=== PATIENT | female | born 1970 | race Caucasian/White ===

== ENCOUNTER 2024-08-12 12:59 | Outpatient (CLI) | payer OTHER, SELFPAY ==
--- OUTSIDE RECORDS SUMMARY | 2024-08-12 13:11 | XMS_ITS | Data Portability ---
Author Organization [facility], [address] ([place]) Address [address] [place] [address] Care Team Providers Care Magnetizer Name Role Phone NOHEMI STEELE Primary Care Provider Assessment Encounter Date Assessment Date Assessment LastModified by Organization Details LastModified Time 06/01/2024 06/01/2024 1. A 53-year-old female in for annual physical. 2. Surgical, social, and family history were reviewed today. 3. Immunizations reviewed and discussed. She is going to check on the cost of Shingrix. She has already had a flu vaccine. She is going to hold off on a COVID booster at this time. Tdap is up to date from 2019. 4. Personal history of colon cancer. Diagnosed at age 32. Underwent colectomy in 2008. Last colonoscopy in 2019, and due for repeat in 2024. 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 Negative high-risk HPV and intraepithelial lesion or malignancy. Due for repeat December 2024. Mammogram up to date from May 2024. 6. Hypertension: Blood pressure is elevated today. Add amlodipine 2.5 mg one tablet daily. On HCTZ 25 mg and lisinopril 40 mg. She has had a side effect of lower extremity edema with amlodipine in the past, but I am hopeful that this will not occur, given she is on a diuretic and SABINE inhibitor at this time. 7. Depression with anxiety: Stable on fluoxetine and bupropion. 8. Family history of melanoma: Recommend annual skin check with a varitype operator. 9. BMP, lipid profile, and TSH ordered today. TSH has been ordered, as she was reporting night sweats at her last office visit, which have remained unchanged. 10 The patient is going to notify me in two weeks with blood pressure readings. She will send these via the portal, as she is currently living in [place]. We will provide recommendations over the phone. 11. Patient does plan to establish with a provider in the [place] area. She voiced understanding of treatment plan and had no further questions or concerns. renny peters Not available 06/01/2024 17:04:49 Plan of Treatment Reminders Order Date Submit Date Provider Last Modified By Organization Details Last Modified Time Details Appointments None recorded. Lab lipid panel, serum 2023 [facility], [facility] [address], [place], [address], 04:30:42 BMP, serum or plasma 2023 [facility], [facility] [address], [place], [address], 04:17:01 TSH, serum or plasma 2023 [facility], [facility], [place], [address], 04:30:42 Referral None recorded. Procedures None recorded. Surgeries None recorded. Imaging None recorded. Medication Orders amlodipine 2.5 mg tablet 2023 [facility] [address] [place], [address], 15:51:25 Patient TargetsNo targets recorded. Patient InstructionsNo instructions recorded. Reason for Referral None Reported. Problems Name Problem SNOMED Code Status Onset Date Resolution Date Notes Provider Name and Address Organization Details Recorded Time Depressi ve disorder 93231945 Active 2023 Lelo Walker [facility] 4 16:42:07 Hyperten sive disorder 03182324 Active 2023 Lelo Walker [facility] 4 16:45:03 Mixed hyperlip idemia 145925901 Active 2023 Pooja Cho PA-C [address] [facility], [place], [address], [facility] 4 15:44:29 [facility]ae [facility] 41503628 Active 2023 Pooja Cho PA-C [address] [facility], [place], [address], [facility] 4 15:44:38 Malignan t tumor of colon 663620496 Completed 202306/01/2024 Removal Reason: diagnosed at age 32. Underwent colectomy in 2008. Pooja Cho PA-C [address] [facility], [place], [address], [facility] 4 16:00:00 Problem Notes None recorded. Procedures Surgical History Date Name Laterality Status Provider Name and Address Organization Details Recorded Time 05/12/20 24 Date of Last Mammogram completed Not Available Health Note 06/01/2024 12:09:42 01/14/20 22 Date of Last Pap Smear completed Not Available Health Note 06/01/2024 12:09:42 Colonoscopy with biopsy completed Not Available Health Note 06/01/2024 12:09:40 Imaging Results None recorded. Procedure Notes None recorded. Medical Equipment None Reported. Allergies Allergen ID Allergen Name Allergen Category Reaction Reaction Severity Criticality Documentation Date Start Date Code Code System Note Provider Name and Address Organization Details Recorded Time 7983007 Substance with sulfonami de structure and antibacte rial mechanism of action (substanc e) medicatio n Not available Not available Not available 08/06/20232021 36762 8003 SNOMED Not Available Not Available Not Available 7533378 ibuprofen medicatio n Not available Not available Not available 08/06/20232021 5640 RxNorm Not Available Not Available Not Available 3127080 Biaxin medicatio n diarrhea Not available Not available 08/06/20232022 19220 9 RxNorm React ion: Gatro intes tinal upset ; Diarr hea; Comme nt: Other Anno tatio ns: Healt h Note, ADPVe ndor 2022 3:24P M Fatty foods ; ; Not Available Not Available Not Available 2498426 POLLEN EXTRACTS medicatio n Not available Not available Not available 04/14/20242022 51764 6 RxNorm React ion: Teari ng eye; Rhini tis; Itchi ng; Comme nt: Polle n ; Not Available Not Available Not Available Medications Name Sig Start Date Stop Date Status Note LastModified by Organization Details LastModified Time fluoxetine 40 mg capsule Take 1 capsule by mouth once daily 2024 active Not Available Not Available Not Avai lable amlodipine 2.5 mg tablet Take 1 tablet every day by oral route. 2023 active Not Available Not Available Not Avai lable hydrochlorothia zide 25 mg tablet Take 1 tablet by mouth once daily 2024 active Not Available Not Available Not Avai lable lisinopril 40 mg tablet TAKE 1 TABLET BY MOUTH ONCE DAILY active Not Available Not Available No t Available bupropion HCl XL 150 mg 24 hr tablet, extended release Take 1 tablet by mouth once daily 2024 active Not Available Not Available Not Avai lable Vitals Date Recorded Body weight Heart rate Oxygen saturation Oxygen saturation in Arterial blood by Pulse oximetry Systolic blood pressure Diastolic blood pressure Provider Name and Address Organization Details Last Updated DateTime 30995.0 7 g 102 /min 98 % 98 % 148 mm[Hg] 110 mm[Hg] [facility] 15:31:22 Date Recorded Systolic blood pressure Diastolic blood pressure Provider Name and Address Organization Details Last Updated DateTime 06/01/2024 132 mm[Hg] 92 mm[Hg] Pooja Cho PA-C [address] [place] [address], [phone], [facility] 06/01/2024 15:50:34 Social History Question Answer Notes LastModified by Organizat ion Details LastModified Time Tobacco Smoking Status Never Smoker Not Available Health Note 06/01/2024 12:09:40 Do You Have An Advance Directive? No [email or web address] Information not available 06/01/2024 What Is Your Level Of Alcohol Consumption? Occasional [email or web address] Information not available 06/01/2024 How Many Times Per Week Do You Consume Alcohol? Less Than 1 Time Per Week [email or web address] Information not available 06/01/2024 What Is Your Level Of Caffeine Consumption? Occasional [email or web address] Information not available 06/01/2024 Are You Currently Employed? 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 1-2 Times Per Week [email or web address] Information not available 06/01/2024 What Was The Date Of Your Most Recent Tobacco Screening? 06/01/2024 [email or web address] Information not available 06/01/2024 What Is Your Relationship Status? Other [email or web address] Information not available 06/01/2024 Do You Use Any Illicit Or Recreational Drugs? No [email or web address] Information not available 06/01/2024 Sex: Female Functional Status Question Answer Note LastModified by Organizat ion Details LastModified Time What is your exercise level? Occasional [email or web address] Information not available 06/01/2024 Mental Status None recorded. Family History Relationship Description Onset Age of this Age Resolved Age Notes LastModified by Organization Details LastModified Time Mother Arthritis [email or web address] Not available 06/01/2024 12:09:39 Mother Asthma [email or web address] Not available 12:09:39 Mother Hypertensive disorder [email or web address] Not available 2023 12:09:39 Father Diabetes mellitus [email or web address] Not available 2023 12:09:39 Father Hypertensive disorder [email or web address] Not available 2023 12:09:39 Father Hypercholest erolemia [email or web address] Not available 2023 12:09:39 Sister Hypertensive disorder [email or web address] Not available 2023 12:09:39 Sister Hypercholest erolemia [email or web address] Not available 2023 12:09:39 Medical History Condition Response Diabetes N Anxiety Disorder N Bleeding Disorder N Attention-deficit Hyperactivity Disorder N High Blood Pressure Y Arthritis N Hyperlipidemia N Cancer Y Stroke N Thyroid Problems N Asthma N Depression Y COPD N Anemia N Seizures N Heart Disease N Fibromyalgia N Osteoporosis N Kidney Disease N Gynecological History Statement/Question Response Abnormal Pap N If Post Menopausal, Age at Menopause 53 Date of Last Mammogram 05/12/2024 Date of Last Pap Smear 01/13/2022 Age at Menarche 10 Current Control Method N/A Obstetrics History GPAL:G 0 P 0 0 0 0 Immunizations Vaccine Type Date Status Note Provider Nam e and Address Organization Details Recorded Time Influenza, split virus, quadrivalent, preservative 8 completed [facility] 06/01/2024 15:31:32 Influenza, MDCK, quadrivalent, PF 3 completed [facility] 06/01/2024 15:31:32 COVID-19, mRNA, LNP-S, PF, 100 mcg/0.5mL dose or 50 mcg/0.25mL dose 1 completed [facility] 06/01/2024 15:31:32 COVID-19, mRNA, LNP-S, PF, 100 mcg/0.5mL dose or 50 mcg/0.25mL dose 1 completed [facility] 06/01/2024 15:31:32 COVID-19, mRNA, LNP-S, PF, 100 mcg/0.5mL dose or 50 mcg/0.25mL dose 2 completed [facility] 06/01/2024 15:31:32 COVID-19, mRNA, LNP-S, PF, 100 mcg/0.5mL dose or 50 mcg/0.25mL dose 1 completed [facility] 06/01/2024 15:31:32 COVID-19, mRNA, LNP-S, bivalent, PF, 50 mcg/0.5 mL or 25mcg/0.25 mL dose 2 completed [facility] 06/01/2024 15:31:32 COVID-19, mRNA, LNP-S, PF, candy-sucrose, 30 mcg/0.3 mL 3 completed [facility] 06/01/2024 15:31:32 [facility] 15:31:32 Influenza, split virus, quadrivalent, PF 0 completed [facility] 06/01/2024 15:31:32 Influenza, split virus, quadrivalent, PF 2 completed [facility] 06/01/2024 15:31:32 Influenza, split virus, quadrivalent, PF 1 completed [facility] 06/01/2024 15:31:32 Past Encounters Encounter ID Performer Location Encounter Start Date Encounter Closed Date Diagnosis/Indication Diagnosis SNOMED-CT Code Diagnosis ICD10 Code Diagnosis Note [id number] Pooja Cho PA-C [address] ([place]) [address] [place] [address],[address] [place] [phone] 06/01/2024 15:22:09 06/01/2024 16:11:29 Mixed hyperlipidemia 710463962 E78.2 Essential hypertension 90611351 I10 Depressive disorder 3548 9007 F32.A General ex amination of patient 724849689 Z00.00 Health Concerns Section Related Observation LastModified by Organization Detai ls LastModified Time None Recorded Concern Status LastModified by Organization Details LastModified Time None Recorded Advance Directives Directive N: Payers Encounter Date Sequence Insurance Name Policy Number Policy Donovan Covered Member ID Donovan Member ID Guarantor Name 06/01/2024 1 [id number] [id number] America Hopson [id number] America Hopson Notes Date Note Type Note Provider Name and Address Organization Details Recorded Time 4 text/html America is a 53-year-old female who presents to the office today for annual physical. Overall, she is doing well. She states that since the last time she was in the office in August 2023, she has moved to [place]. She unfortunately lost her job at [employer]. She now works for [employer]. She states she is closer to her family in [facility], so is happy to be back in the area. Her past medical history includes depression with anxiety, hyperlipidemia, and hypertension. She does note that her blood pressure has been consistently elevated. She states she has not checked it routinely, but any time it has been checked, her diastolic has been above 90. She reports compliance with hydrochlorothiazide and lisinopril. She was on amlodipine prior to these medications and had a side effect of lower extremity edema. She continues to take fluoxetine and bupropion and reports good control of her depression and anxiety. She has a family history of melanoma and states that she needs to establish with a varitype operator in [place]. She had a mammogram completed this month. Her last Pap smear was in December 2019. She will be due for repeat December 2024. Her colonoscopy will also be due in 2024 as well, given she has a personal history of colon cancer, which was diagnosed at age 32. She states she needs to find a new GI doc. She had a colectomy in 2008. She denies any changes to surgical, social, or family history.renny America Romero a 53 year oldfemalepresenting for care. Past Gynecology History:Still has a menstrual cycle:noMenopause:yes, began [id number] old Pooja Cho PA-C [address] [place] [address], [phone], [facility] 06/02/2024 10:22:31 OBGyn Episode No OBEpisode recorded.
--- OUTSIDE RECORDS SUMMARY | 2024-08-12 13:12 | XMS_ITS | Data Portability ---
Author Organization [facility], [facility] Address [address] [place] [address] Care Team Providers Care Feedmobile Driver Name Role Phone ASMITA LUZ Primary Care Provider PRAKASH SOTO Cistern Room Working Supervisor BEN BAUMAN Charge Master Analyst Assessment Encounter Date Assessment Date Assessment LastModified by Organization Details LastModified Time 06/13/2020 06/13/2020 10 minutes spent with pt via video [email or web address] Not available 06/13/2020 15:48:48 10/02/2020 10/02/2020 10 minutes spent with pt via video [email or web address] Not available 10/02/2020 16:06:49 06/19/2021 06/19/2021 10 minutes spent with pt via video [email or web address] Not available 06/19/2021 14:35:58 Plan of Treatment Reminders Order Date Submit Date Provider Last Modified By Organization Details Last Modified Time Details Appointments None recorded. Lab CBC w/ auto diff 2019 021 [email or web address], [address] [place], [address], 05:09:32 CMP, serum or plasma 2019 021 [facility], [address] [place], [address], 06:11:54 lh + FSH, serum 2020 021 [facility], [address] [place] [address], [address], 1 04:09:25 estradiol , serum 2020 021 [facility], [address] [place] [address], [address], 1 04:09:26 CBC w/ auto diff 2020 021 [facility], [address] [place] [address], [address], 1 10:22:45 pathology review, smear 2020 021 [facility] [employer], [address] [place] [address], [address], 1 14:10:39 CMP, serum or plasma 2020 021 [facility], [address] [place] [address], [address], 1 03:09:07 lipid panel, serum 2020 021 [employer], [address] [place] [address], [address], 1 04:08:50 CMP, serum or plasma 2020 021 [facility], [address] [place] [address], [address], 04:08:49 CBC w/ auto diff 2020 021 [facility], [address] [place] [address], [address], 1 04:08:49 TSH, ultra-sen sitive, serum 2020 021 [facility], [address] [place] [address], [address], 04:08:51 Referral hematolog ist referral - Please schedule the patient. Thank you. 2020 [facility], [address], [place], [address], 11:59:10 Procedures None recorded. Surgeries None recorded. Imaging None recorded. Medication Orders fluticaso ne propionat e 50 mcg/actua tion nasal spray,braden pension [address], [address] [place] [address], [address], 11:48:[address] 10 mg tablet 2020 021 [facility], [address] [place] [address], [address], 16:19:50 amlodipin e 5 mg tablet 2020 [facility], [address] [place] [address], [address], 15:11:12 Patient TargetsNo targets recorded. Patient Instructions Encounter Date Encounter Id Patient Instructions Last Modified By Organization Details Last Modified Time 06/13/2020 [id number] learning about mood disorders [email or web address] Not available 06/13/2020 15:57:10 12/28/2020 [id number] Screening, Brief Intervention, and Referral to Treatment* [email or web address] Not available 12/28/2020 13:45:50 05/24/[id number] Screening, Brief Intervention, and Referral to Treatment* [email or web address] Not available 05/24/2021 19:49:36 A healthy lifestyle: care instructions [email or web address] Not available 05/24/2021 19:49:36 exercise [email or web address] Not available 2020 19:49:36 nutrition [email or web address] Not available 2020 19:49:36 Reason for Referral Please schedule the patient. Thank you. Referring Physician: Asmita Luz, Family Medicine, Encounter Date: 12/28/2020 Results Created Date Observation Date Name Description Value Unit Range Abnormal Flag Note LastModifiedBy Organization Detail LastModifiedTime 12/29/19 21 12/28/2020 Scree treva, Brief Inter venti on, and Refer ral to Treat ment* In the past 2 weeks, have you felt nervous, anxious, or on edge? Not at all Not Available [facility] [address] [place], [address], 12/28/2020 11:50:46 12/29/19 21 12/28/2020 Scree treva, Brief Inter venti on, and Refer ral to Treat ment* In the past 2 weeks, have you been unable to stop or control worrying? Not at all Not Available [facility] [address] [place], [address], 12/28/2020 11:50:46 12/29/19 21 12/28/2020 Scredeniz tilley, Brief Inter venti on, and Refer ral to Treat ment* How many times in the last year have you used drugs/prescr iption meds for non-medical reasons? None Not Available [facility] [address] [place], [address], 12/28/2020 11:50:46 12/29/19 21 12/28/2020 Selena tilley, Brief Inter venti on, and Refer ral to Treat ment* How many times in the past year have you had 4 drinks in 1 day? 0 Not Available [facility] [address] [place], [address], 12/28/2020 11:50:46 12/29/19 21 12/28/2020 Scredeniz foremang, Brief Inter venti on, and Refer ral to Treat ment* Positive or Negative? negati ve Not Available [facility] [address] [place], [address], 12/28/2020 11:50:46 12/29/19 21 12/28/2020 Scredeniz foremang, Brief Inter venti on, and Refer ral to Treat ment* Referral? Not needed at this time Not Available [facility] [address] [place], [address], 12/28/2020 11:50:46 06/07/20 20 06/08/2020 CBC w/ auto diff WBC 11.7 x10e3 /uL 3.4-10 .8 above high normal Not Available [facility] ([facility]) [address] [facility], [place], [address], 06/08/2020 03:08:25 06/07/20 20 06/08/2020 CBC w/ auto diff RBC 4.66 x10e6 /uL 3.77-5 .28 Not Available [facility] ([facility]) [address] [facility], [place], [address], 06/08/2020 03:08:25 06/07/2006/08/2020 CBC w/ auto diff hemoglobin 13.8 g/dL 11.1-1 5.9 Not Available [facility] ([facility]) [address] [facility], [place], [address], 06/08/2020 03:08:25 06/07/2006/08/2020 CBC w/ auto diff hematocrit 41.3 % 34.0-4 6.6 Not Available [facility] ([facility]) [address] [place], [address], 06/08/2020 03:08:25 06/07/2006/08/2020 CBC w/ auto diff MCV 89 fL 79-97 Not Available [facility] ([facility]) [address] [place], [address], 06/08/2020 03:08:25 06/07/2006/08/2020 CBC w/ auto diff MCH 29.6 pg 26.6-3 3.0 Not Available [facility] ([facility]) [address] [place], [address], 06/08/2020 03:08:25 06/07/20 20 06/08/2020 CBC w/ auto diff MCHC 33.4 g/dL 31.5-3 5.7 Not Available [facility] ([facility]) [address] [facility], [place], [address], 06/08/2020 03:08:25 06/07/20 20 06/08/2020 CBC w/ auto diff RDW 12.9 % 11.7-1 5.4 Not Available [facility] ([facility]) [address] [facility], [place], [address], 06/08/2020 03:08:25 06/07/20 20 06/08/2020 CBC w/ auto diff platelets 357 x10e3 /uL 150-45 0 Not Available [facility] ([facility]) [address] [facility], [place], [address], 06/08/2020 03:08:25 06/07/20 20 06/08/2020 CBC w/ auto diff neutrophils 59 % not estab. Not Available [facility] ([facility]) [address] [facility], [place], [address], 06/08/2020 03:08:25 06/07/20 20 06/08/2020 CBC w/ auto diff lymphs 32 % not estab. Not Available [facility] ([facility]) [address] [facility], [place], [address], 06/08/2020 03:08:25 06/07/20 20 06/08/2020 CBC w/ auto diff monocytes 6 % not estab. Not Available [facility] ([facility]) [address] [facility], [place], [address], 06/08/2020 03:08:25 06/07/20 20 06/08/2020 CBC w/ auto diff eos 2 % not estab. Not Available [facility] ([facility]) [address] [facility], [place], [address], 06/08/2020 03:08:25 06/07/20 20 06/08/2020 CBC w/ auto diff basos 1 % not estab. Not Available [facility] ([facility]) [address] [place], [address], 06/08/2020 03:08:25 06/07/20 20 06/08/2020 CBC w/ auto diff immature cells COUNSELING PSYCHOLOGIST Not Available [facility] ([facility]) [address] [place], [address], 06/08/2020 03:08:25 06/07/20 20 06/08/2020 CBC w/ auto diff neutrophils (absolute) 6.9 x10e3 /uL 1.4-7. 0 Not Available [facility] ([facility]) [address] [facility], [place], [address], 06/08/2020 03:08:25 06/07/20 20 06/08/2020 CBC w/ auto diff lymphs (absolute) 3.8 x10e3 /uL 0.7-3. 1 above high normal Not Available [facility] ([facility]) [address] [place], [address], 06/08/2020 03:08:25 06/07/20 20 06/08/2020 CBC w/ auto diff monocytes(ab solute) 0.7 x10e3 /uL 0.1-0. 9 Not Available [facility] ([facility]) [address] [place], [address], 06/08/2020 03:08:25 06/07/20 20 06/08/2020 CBC w/ auto diff eos (absolute) 0.2 x10e3 /uL 0.0-0. 4 Not Available [facility] ([facility]) [address] [place], [address], 06/08/2020 03:08:25 06/07/20 20 06/08/2020 CBC w/ auto diff baso (absolute) 0.1 x10e3 /uL 0.0-0. 2 Not Available [facility] ([facility]) [address] [facility] [place], [address], 06/08/2020 03:08:25 06/07/2006/08/2020 CBC w/ auto diff immature granulocytes 0 % not estab. Not Available [facility] ([facility]) [address] [facility] [place], [address], 06/08/2020 03:08:25 06/07/2006/08/2020 CBC w/ auto diff immature grans (abs) 0.0 x10e3 /uL 0.0-0. 1 Not Available [facility] ([facility]) [address] [facility] [place], [address], 06/08/2020 03:08:25 06/07/2006/08/2020 CBC w/ auto diff NRBC COUNSELING PSYCHOLOGIST Not Available [facility] ([facility]) [address] [facility] [place], [address], 06/08/2020 03:08:25 06/07/2006/08/2020 CBC w/ auto diff hematology comments: COUNSELING PSYCHOLOGIST Not Available [facility] ([facility]) [address] [facility] [place], [address], 06/08/2020 03:08:25 06/07/20 20 06/08/2020 CMP, serum or plasm a glucose 100 mg/dL 65-99 above high normal Not Available [facility] ([facility]) [address] [facility] [place], [address], 06/08/2020 03:08:26 06/07/20 20 06/08/2020 CMP, serum or plasm a BUN 13 mg/dL 6-24 Not Available [facility] ([facility]) [address] [facility] [place], [address], 06/08/2020 03:08:26 06/07/20 20 06/08/2020 CMP, serum or plasm a creatinine 0.81 mg/dL 0.57-1 .00 Not Available [facility] ([facility]) [address] [facility] [place], [address], 06/08/2020 03:08:26 06/07/20 20 06/08/2020 CMP, serum or plasm a eGFR if nonafricn AM 84 mL/mi n/1.7 3 >59 Not Available [facility] ([facility]) [address] [facility] [place], [address], 06/08/2020 03:08:26 06/07/20 20 06/08/2020 CMP, serum or plasm a eGFR if africn AM 97 mL/mi n/1.7 3 >59 Not Available [facility] ([facility]) [address] [facility] [place], [address], 06/08/2020 03:08:26 06/07/20 20 06/08/2020 CMP, serum or plasm a BUN/creatini ne ratio 16 9-23 Not Available [facility] ([facility]) [address] [place], [address], 06/08/2020 03:08:26 06/07/2006/08/2020 CMP, serum or plasm a sodium 142 mmol/ L 134-14 4 Not Available [facility] ([facility]) [address] [place], [address], 06/08/2020 03:08:26 06/07/2006/08/2020 CMP, serum or plasm a potassium 3.8 mmol/ L 3.5-5. 2 Not Available [facility] ([facility]) [address] [place], [address], 06/08/2020 03:08:26 06/07/2006/08/2020 CMP, serum or plasm a chloride 103 mmol/ L 96-106 Not Available [facility] ([facility]) [address] [place], [address], 06/08/2020 03:08:26 06/07/2006/08/2020 CMP, serum or plasm a carbon dioxide, total 23 mmol/ L 20-29 Not Available [facility] ([facility]) [address] [facility] [place], [address], 06/08/2020 03:08:26 06/07/20 20 06/08/2020 CMP, serum or plasm a calcium 9.4 mg/dL 8.7-10 .2 Not Available [facility] ([facility]) [address] [facility] [place], [address], 06/08/2020 03:08:26 06/07/2006/08/2020 CMP, serum or plasm a protein, total 7.1 g/dL 6.0-8. 5 Not Available [facility] ([facility]) [address] [facility] [place], [address], 06/08/2020 03:08:26 06/07/2006/08/2020 CMP, serum or plasm a albumin 4.4 g/dL 3.8-4. 9 Not Available [facility] ([facility]) [address] [facility] [place], [address], 06/08/2020 03:08:26 06/07/2006/08/2020 CMP, serum or plasm a globulin, total 2.7 g/dL 1.5-4. 5 Not Available [facility] ([facility]) [address] [facility] [place], [address], 06/08/2020 03:08:26 06/07/2006/08/2020 CMP, serum or plasm a A/G ratio 1.6 1.2-2. 2 Not Available [facility] ([facility]) [address] [facility] [place], [address], 06/08/2020 03:08:26 06/07/2006/08/2020 CMP, serum or plasm a bilirubin, total 0.2 mg/dL 0.0-1. 2 Not Available [facility] ([facility]) [address] [place], [address], 06/08/2020 03:08:26 06/07/20 20 06/08/2020 CMP, serum or plasm a alkaline phosphatase 79 IU/L 39-117 Not Available [facility] ([facility]) [address] [facility], [place], [address], 06/08/2020 03:08:26 06/07/20 20 06/08/2020 CMP, serum or plasm a AST (SGOT) 25 IU/L 0-40 Not Available [facility] ([facility]) [address] [facility] [place], [address], 06/08/2020 03:08:26 06/07/20 20 06/08/2020 CMP, serum or plasm a ALT (SGPT) 22 IU/L 0-32 Not Available [facility] ([facility]) [address] [facility] [place], [address], 06/08/2020 03:08:26 09/06/19 21 09/06/2020 CBC w/ auto diff WBC 11.3 x10e3 /uL 3.4-10 .8 above high normal Not Available [facility] ([facility]) [address] [facility] [place], [address], 09/06/2020 05:09:31 09/06/19 21 09/06/2020 CBC w/ auto diff RBC 4.67 x10e6 /uL 3.77-5 .28 Not Available [facility] ([facility]) [address] [place], [address], 09/06/2020 05:09:31 09/06/19 21 09/06/2020 CBC w/ auto diff hemoglobin 13.9 g/dL 11.1-1 5.9 Not Available [facility] ([facility]) [address] [facility] [place], [address], 09/06/2020 05:09:31 09/06/19 21 09/06/2020 CBC w/ auto diff hematocrit 42.6 % 34.0-4 6.6 Not Available [facility] ([facility]) [address] [facility], [place], [address], 09/06/2020 05:09:31 09/06/19 21 09/06/2020 CBC w/ auto diff MCV 91 fL 79-97 Not Available [facility] ([facility]) [address] [facility], [place], [address], 09/06/2020 05:09:31 09/06/19 21 09/06/2020 CBC w/ auto diff MCH 29.8 pg 26.6-3 3.0 Not Available [facility] ([facility]) [address] [facility], [place], [address], 09/06/2020 05:09:31 09/06/19 21 09/06/2020 CBC w/ auto diff MCHC 32.6 g/dL 31.5-3 5.7 Not Available [facility] ([facility]) [address] [facility], [place], [address], 09/06/2020 05:09:31 09/06/19 21 09/06/2020 CBC w/ auto diff RDW 13.1 % 11.7-1 5.4 Not Available [facility] ([facility]) [address] [facility], [place], [address], 09/06/2020 05:09:31 09/06/19 21 09/06/2020 CBC w/ auto diff platelets 379 x10e3 /uL 150-45 0 Not Available [facility] ([facility]) [address] [facility], [place], [address], 09/06/2020 05:09:31 09/06/19 21 09/06/2020 CBC w/ auto diff neutrophils 50 % not estab. Not Available [facility] ([facility]) [address] [facility], [place], [address], 09/06/2020 05:09:31 03/02/20 21 09/06/2020 CBC w/ auto diff lymphs 36 % not estab. Not Available [facility] ([facility]) [address] [facility], [place], [address], 09/06/2020 05:09:31 09/06/19 21 09/06/2020 CBC w/ auto diff monocytes 10 % not estab. Not Available [facility] ([facility]) [address] [facility], [place], [address], 09/06/2020 05:09:31 09/06/19 21 09/06/2020 CBC w/ auto diff eos 3 % not estab. Not Available [facility] ([facility]) [address] [facility], [place], [address], 09/06/2020 05:09:31 09/06/19 21 09/06/2020 CBC w/ auto diff basos 1 % not estab. Not Available [facility] ([facility]) [address] [facility], [place], [address], 09/06/2020 05:09:31 09/06/19 21 09/06/2020 CBC w/ auto diff immature cells COUNSELING PSYCHOLOGIST Not Available [facility] ([facility]) [address] [facility], [place], [address], 09/06/2020 05:09:31 09/06/19 21 09/06/2020 CBC w/ auto diff neutrophils (absolute) 5.7 x10e3 /uL 1.4-7. 0 Not Available [facility] ([facility]) [address] [place], [address], 09/06/2020 05:09:31 09/06/19 21 09/06/2020 CBC w/ auto diff lymphs (absolute) 4.1 x10e3 /uL 0.7-3. 1 above high normal Not Available [facility] ([facility]) [address] [place], [address], 09/06/2020 05:09:31 09/06/19 21 09/06/2020 CBC w/ auto diff monocytes(ab solute) 1.1 x10e3 /uL 0.1-0. 9 above high normal Not Available [facility] ([facility]) [address] [facility], [place], [address], 09/06/2020 05:09:31 09/06/19 21 09/06/2020 CBC w/ auto diff eos (absolute) 0.4 x10e3 /uL 0.0-0. 4 Not Available [facility] ([facility]) [address] [facility], [place], [address], 09/06/2020 05:09:31 09/06/19 21 09/06/2020 CBC w/ auto diff baso (absolute) 0.1 x10e3 /uL 0.0-0. 2 Not Available [facility] ([facility]) [address] [facility], [place], [address], 09/06/2020 05:09:31 09/06/19 21 09/06/2020 CBC w/ auto diff immature granulocytes 0 % not estab. Not Available [facility] ([facility]) [address] [facility], [place], [address], 09/06/2020 05:09:31 09/06/19 21 09/06/2020 CBC w/ auto diff immature grans (abs) 0.0 x10e3 /uL 0.0-0. 1 Not Available [facility] ([facility]) [address] [facility], [place], [address], 09/06/2020 05:09:31 09/06/19 21 09/06/2020 CBC w/ auto diff NRBC COUNSELING PSYCHOLOGIST Not Available [facility] ([facility]) [address] [facility], [place], [address], 09/06/2020 05:09:31 09/06/19 21 09/06/2020 CBC w/ auto diff hematology comments: COUNSELING PSYCHOLOGIST Not Available [facility] ([facility]) [address] [facility] [place], [address], 09/06/2020 05:09:31 09/06/19 21 09/06/2020 CMP, serum or plasm a glucose 83 mg/dL 65-99 Not Available [facility] ([facility]) [address] [facility] [place], [address], 09/06/2020 06:11:54 09/06/19 21 09/06/2020 CMP, serum or plasm a BUN 15 mg/dL 6-24 Not Available [facility] ([facility]) [address] [place], [address], 09/06/2020 06:11:54 09/06/19 21 09/06/2020 CMP, serum or plasm a creatinine 0.72 mg/dL 0.57-1 .00 Not Available [facility] ([facility]) [address] [place], [address], 09/06/2020 06:11:54 09/06/19 21 09/06/2020 CMP, serum or plasm a eGFR if nonafricn AM 97 mL/mi n/1.7 3 >59 Not Available [facility] ([facility]) [address] [place], [address], 09/06/2020 06:11:54 09/06/19 21 09/06/2020 CMP, serum or plasm a eGFR if africn AM 112 mL/mi n/1.7 3 >59 Not Available [facility] ([facility]) [address] [place], [address], 09/06/2020 06:11:54 09/06/19 21 09/06/2020 CMP, serum or plasm a BUN/creatini ne ratio 21 9-23 Not Available [facility] ([facility]) [address] [place], [address], 09/06/2020 06:11:54 09/06/19 21 09/06/2020 CMP, serum or plasm a sodium 144 mmol/ L 134-14 4 Not Available [facility] ([facility]) [address] [place], [address], 09/06/2020 06:11:54 09/06/19 21 09/06/2020 CMP, serum or plasm a potassium 4.2 mmol/ L 3.5-5. 2 Not Available [facility] ([facility]) [address] [place], [address], 09/06/2020 06:11:54 09/06/19 21 09/06/2020 CMP, serum or plasm a chloride 104 mmol/ L 96-106 Not Available [facility] ([facility]) [address] [place], [address], 09/06/2020 06:11:54 09/06/19 21 09/06/2020 CMP, serum or plasm a carbon dioxide, total 25 mmol/ L 20-29 Not Available [facility] ([facility]) [address] [place], [address], 09/06/2020 06:11:54 09/06/19 21 09/06/2020 CMP, serum or plasm a calcium 9.5 mg/dL 8.7-10 .2 Not Available [facility] ([facility]) [address] [place], [address], 09/06/2020 06:11:54 09/06/19 21 09/06/2020 CMP, serum or plasm a protein, total 7.4 g/dL 6.0-8. 5 Not Available [facility] ([facility]) [address] [place], [address], 09/06/2020 06:11:54 09/06/19 21 09/06/2020 CMP, serum or plasm a albumin 4.2 g/dL 3.8-4. 9 Not Available [facility] ([facility]) [address] [facility] [place], [address], 09/06/2020 06:11:54 09/06/19 21 09/06/2020 CMP, serum or plasm a globulin, total 3.2 g/dL 1.5-4. 5 Not Available [facility] ([facility]) [address] [facility] [place], [address], 09/06/2020 06:11:54 09/06/19 21 09/06/2020 CMP, serum or plasm a A/G ratio 1.3 1.2-2. 2 Not Available [facility] ([facility]) [address] [facility] [place], [address], 09/06/2020 06:11:54 09/06/19 21 09/06/2020 CMP, serum or plasm a bilirubin, total <0.2 mg/dL 0.0-1. 2 Not Available [facility] ([facility]) [address] [facility] [place], [address], 09/06/2020 06:11:54 09/06/1909/06/2020 CMP, serum or plasm a alkaline phosphatase 79 IU/L 39-117 Not Available [facility] ([facility]) [address] [place], [address], 09/06/2020 06:11:54 09/06/1909/06/2020 CMP, serum or plasm a AST (SGOT) 20 IU/L 0-40 Not Available [facility] ([facility]) [address] [place], [address], 09/06/2020 06:11:54 09/06/1909/06/2020 CMP, serum or plasm a ALT (SGPT) 16 IU/L 0-32 Not Available [facility] ([facility]) [address] [place], [address], 09/06/2020 06:11:54 12/22/19 21 12/22/2020 CMP, serum or plasm a glucose 72 mg/dL 65-99 Not Available [facility] ([facility]) [address] [place], [address], 12/22/2020 03:09:07 12/22/19 21 12/22/2020 CMP, serum or plasm a BUN 13 mg/dL 6-24 Not Available [facility] ([facility]) [address] [place], [address], 12/22/2020 03:09:07 12/22/19 21 12/22/2020 CMP, serum or plasm a creatinine 0.72 mg/dL 0.57-1 .00 Not Available [facility] ([facility]) [address] [place], [address], 12/22/2020 03:09:07 12/22/19 21 12/22/2020 CMP, serum or plasm a eGFR if nonafricn AM 97 mL/mi n/1.7 3 >59 Not Available [facility] ([facility]) [address] [place], [address], 12/22/2020 03:09:07 12/22/19 21 12/22/2020 CMP, serum or plasm a eGFR if africn AM 111 mL/mi n/1.7 3 >59 Lab cynthia curre ntly repor ts eGFR in compl iance with the curre nt recom menda tions of the [facility] at[facility] . [facility] will updat e repor ting as new guide lines are publi shed from the NKF-A SN Task force . Not Available [facility] ([facility]) [address] [place], [address], 12/22/2020 03:09:07 12/22/19 21 12/22/2020 CMP, serum or plasm a BUN/creatini ne ratio 18 9-23 Not Available [facility] ([facility]) [address] [facility] [place], [address], 12/22/2020 03:09:07 12/22/19 21 12/22/2020 CMP, serum or plasm a sodium 140 mmol/ L 134-14 4 Not Available [facility] ([facility]) [address] [facility] [place], [address], 12/22/2020 03:09:07 12/22/19 21 12/22/2020 CMP, serum or plasm a potassium 4.0 mmol/ L 3.5-5. 2 Not Available [facility] ([facility]) [address] [facility] [place], [address], 12/22/2020 03:09:07 12/22/1912/22/2020 CMP, serum or plasm a chloride 103 mmol/ L 96-106 Not Available [facility] ([facility]) [address] [facility] [place], [address], 12/22/2020 03:09:07 12/22/19 21 12/22/2020 CMP, serum or plasm a carbon dioxide, total 25 mmol/ L 20-29 Not Available [facility] ([facility]) [address] [facility] [place], [address], 12/22/2020 03:09:07 12/22/1912/22/2020 CMP, serum or plasm a calcium 9.4 mg/dL 8.7-10 .2 Not Available [facility] ([facility]) [address] [place], [address], 12/22/2020 03:09:07 12/22/1912/22/2020 CMP, serum or plasm a protein, total 7.1 g/dL 6.0-8. 5 Not Available [facility] ([facility]) [address] [place], [address], 12/22/2020 03:09:07 12/22/19 21 12/22/2020 CMP, serum or plasm a albumin 4.2 g/dL 3.8-4. 9 Not Available [facility] ([facility]) [address] [place], [address], 12/22/2020 03:09:07 12/22/19 21 12/22/2020 CMP, serum or plasm a globulin, total 2.9 g/dL 1.5-4. 5 Not Available [facility] ([facility]) [address] [place], [address], 12/22/2020 03:09:07 12/22/1912/22/2020 CMP, serum or plasm a A/G ratio 1.4 1.2-2. 2 Not Available [facility] ([facility]) [address] [place], [address], 12/22/2020 03:09:07 12/22/19 21 12/22/2020 CMP, serum or plasm a bilirubin, total 0.3 mg/dL 0.0-1. 2 Not Available [facility] ([facility]) [address] [place], [address], 12/22/2020 03:09:07 12/22/19 21 12/22/2020 CMP, serum or plasm a alkaline phosphatase 97 IU/L 48-121 Not Available [facility]) [address] [place], [address], 12/22/2020 03:09:07 12/22/19 21 12/22/2020 CMP, serum or plasm a AST (SGOT) 23 IU/L 0-40 Not Available [facility] ([facility]) [address] [place], [address], 12/22/2020 03:09:07 12/22/19 21 12/22/2020 CMP, serum or plasm a ALT (SGPT) 21 IU/L 0-32 Not Available [facility] ([facility]) [address] [place], [address], 12/22/2020 03:09:07 12/22/19 21 12/22/2020 lh + FSH, serum LH 31.4 mIU/m L Adult Femal e: Folli cular phase 2.4 - 12.6 Ovula tion phase 14.0 - 95.6 Lutea l phase 1.0 - 11.4 Postm enopa usal 7.7 - 58.5 Not Available [facility] ([facility]) [address] [place], [address], 12/22/2020 04:09:25 12/22/1912/22/2020 lh + FSH, serum FSH 10.1 mIU/m L Adult Femal e: Folli cular phase 3.5 - 12.5 Ovula tion phase 4.7 - 21.5 Lutea l phase 1.7 - 7.7 Postm enopa usal 25.8 - 134.8 Not Available [facility] ([facility]) [address] [place], [address], 12/22/2020 04:09:25 12/22/1912/22/2020 estra diol, serum estradiol 414.0 pg/mL Adult Femal e: Folli cular phase 12.5 - 166.0 Ovula tion phase 85.8 - 498.0 Lutea l phase 43.8 - 211.0 Postm enopa usal <6.0 - 54.7 Pregn trevon 1st trime ster 215.0 - >4300 .0 Georges ECLIA metho dolog y Not Available [facility] ([facility]) [address] [place], [address], 12/22/2020 04:09:25 12/22/19 21 12/22/2020 hemat opath consu ltati on, smear WBC 11.4 x10e3 /uL 3.4-10 .8 above high [place] [address] [address], [place], [address], 12/25/2020 14:10:39 12/22/19 21 12/22/2020 hemat opath consu ltati on, smear RBC 4.90 x10e6 /uL 3.77-5 .28 [place] [address] [address], [place], [address], 12/25/2020 14:10:39 12/22/19 21 12/22/2020 hemat opath consu ltati on, smear hemoglobin 14.4 g/dL 11.1-1 5.9 [place] [address] [address], [place], [address], 12/25/2020 14:10:39 12/22/19 21 12/22/2020 hemat opath consu ltati on, smear hematocrit 44.8 % 34.0-4 6.6 [place] [address] [address], [place], [address], 12/25/2020 14:10:39 12/22/19 21 12/22/2020 hemat opath consu ltati on, smear MCV 91 fL 79-97 [place] [address] [address], [place], [address], 12/25/2020 14:10:39 12/22/19 21 12/22/2020 hemat opath consu ltati on, smear MCH 29.4 pg 26.6-3 3.0 [place] [address] [address], [place], [address], 12/25/2020 14:10:39 12/22/19 21 12/22/2020 hemat opath consu ltati on, smear MCHC 32.1 g/dL 31.5-3 5.7 [place] [address] [address], [place], [address], 12/25/2020 14:10:39 12/22/19 21 12/22/2020 hemat opath consu ltati on, smear RDW 13.5 % 11.7-1 5.4 [place] [address] [address], [place], [address], 12/25/2020 14:10:39 12/22/19 21 12/22/2020 hemat opath consu ltati on, smear platelets 325 x10e3 /uL 150-45 0 [place] [address] [address], [place], [address], 12/25/2020 14:10:39 12/22/19 21 12/22/2020 hemat opath consu ltati on, smear neutrophils 55 % not estab. [place] [address] [address], [place], [address], 12/25/2020 14:10:39 12/22/19 21 12/22/2020 hemat opath consu ltati on, smear lymphs 33 % not estab. [place] [address] [address], [place], [address], 12/25/2020 14:10:39 12/22/19 21 12/22/2020 hemat opath consu ltati on, smear monocytes 9 % not estab. Not Available Vivien Lyon [place] [address] [place] [address], [place], [address], 12/25/2020 14:10:39 12/22/19 21 12/22/2020 hemat opath consu ltati on, smear eos 2 % not estab. [place] [address] [address], [place], [address], 12/25/2020 14:10:39 12/22/19 21 12/22/2020 hemat opath consu ltati on, smear basos 1 % not estab. [place] [address] [address], [place], [address], 12/25/2020 14:10:39 12/22/19 21 12/22/2020 hemat opath consu ltati on, smear immature cells COUNSELING PSYCHOLOGIST Not Available Vivien Lyon MD [address] [place] [address], [place], [address], 12/25/2020 14:10:39 12/22/19 21 12/22/2020 hemat opath consu ltati on, smear neutrophils (absolute) 6.2 x10e3 /uL 1.4-7. 0 Not Available Vivien Lyon MD [address] [place] [address], [place], [address], 12/25/2020 14:10:39 12/22/19 21 12/22/2020 hemat opath consu ltati on, smear lymphs (absolute) 3.8 x10e3 /uL 0.7-3. 1 above high normal Not Available Vivien Lyon MD [address] [place] [address], [place], [address], 12/25/2020 14:10:39 12/22/19 21 12/22/2020 hemat opath consu ltati on, smear monocytes(ab solute) 1.0 x10e3 /uL 0.1-0. 9 above high normal Not Available Vivien Lyon MD [address] [place] [address], [place], [address], 12/25/2020 14:10:39 12/22/19 21 12/22/2020 hemat opath consu ltati on, smear eos (absolute) 0.3 x10e3 /uL 0.0-0. 4 Not Available Vivien Lyon MD [address] [place] [address], [place], [address], 12/25/2020 14:10:39 12/22/19 21 12/22/2020 hemat opath consu ltati on, smear baso (absolute) 0.1 x10e3 /uL 0.0-0. 2 Not Available Vivien Lyon MD [address] [place] [address], [place], [address], 12/25/2020 14:10:39 12/22/19 21 12/22/2020 hemat opath consu ltati on, smear immature granulocytes 0 % not estab. [place] [address] [address], [place], [address], 12/25/2020 14:10:39 12/22/19 21 12/22/2020 hemat opath consu ltati on, smear immature grans (abs) 0.0 x10e3 /uL 0.0-0. 1 [place] [address] [address], [place], [address], 12/25/2020 14:10:39 12/22/19 21 12/22/2020 hemat opath consu ltati on, smear NRBC COUNSELING PSYCHOLOGIST [place] [address] [address], [place], [address], 12/25/2020 14:10:39 12/22/19 21 12/22/2020 hemat opath consu ltati on, smear hematology comments: COUNSELING PSYCHOLOGIST [place] [address] [address], [place], [address], 12/25/2020 14:10:39 12/22/19 21 12/25/2020 hemat opath consu ltati on, smear WBC Commen t Lymph ocyto sis. React alicia albarado es are not obser gael. Monoc ytosi s is prese nt. Monoc ytosi s can be assoc iated with infec tious , autoi mmune , drug and/o r myelo proli ferat alicia etiol ogies . Clini jamee corre latio n is recom boubacar d. Addit ional radha p is recom boubacar d if these findi ngs persi st or [place]. [place] [address] [facility] [address], [place], [address], 12/25/2020 14:10:39 12/22/19 21 12/25/2020 hemat opath consu ltati on, smear RBC Commen t RBC morph ology is katty [place]. [place] [address] [address], [place], [address], 12/25/2020 14:10:39 12/22/19 21 12/25/2020 hemat opath consu ltati on, smear plts Commen t Few large plate lets were obser [place]ael. [place] [address] [address], [place], [address], 12/25/2020 14:10:39 12/22/19 21 12/25/2020 hemat opath consu ltati on, smear comments/rec ommendations Commen t Etiol ogy is not appar ent from smear revie w. Sugge st repea t study after resol ution of clini jamee sympt oms to assur e retur n of value s to basel ine level s. If there is no estab lishe d diagn osis and findi ngs persi st, furth er evalu ation is indic ated. [place] [address] [address], [place], [address], 12/25/2020 14:10:39 12/22/19 21 12/25/2020 hemat opath consu ltati on, smear pathologist Commen t Revie wed by: Alhaji Robbins MD, Patho logis [place] [address] [address], [place], [address], 12/25/2020 14:10:39 02/07/20 21 02/06/2021 CBC AUTOM ATED white blood count 9.9 10*3/ uL 4.0-10 .5 Not Available [facility] [address], [place], [address], 02/06/2021 12:13:25 02/07/20 21 02/06/2021 CBC AUTOM ATED red blood count 4.75 10*6/ uL 4.20-5 .40 Not Available [facility] [address], [place], [address], 02/06/2021 12:13:25 02/07/2002/06/2021 CBC AUTOM ATED nucleated RBCs relative 0.00 % Not Available [facility] [address] [place], [address], 02/06/2021 12:13:25 02/07/20 21 02/06/2021 CBC AUTOM ATED nucleated RBCs absolute 0.00 10*6/ uL 0.00-0 .02 Not Available [facility] [address] [place], [address], 02/06/2021 12:13:25 02/07/2002/06/2021 CBC AUTOM ATED hemoglobin 14.2 g/dL 12.5-1 6.0 Not Available [facility] [address] [place], [address], 02/06/2021 12:13:25 02/07/20 21 02/06/2021 CBC AUTOM ATED hematocrit 43.6 % 37.0-4 7.0 Not Available [facility] [address] [place], [address], 02/06/2021 12:13:25 02/07/20 21 02/06/2021 CBC AUTOM ATED MCV 91.8 fL 78.0-1 00.0 Not Available [facility] [address] [place], [address], 02/06/2021 12:13:25 02/07/20 21 02/06/2021 CBC AUTOM ATED MCH 29.9 pg 27.0-3 7.0 Not Available [facility] [address] [place], [address], 02/06/2021 12:13:25 02/07/20 21 02/06/2021 CBC AUTOM ATED MCHC 32.6 g/dL 32.0-3 6.0 Not Available [facility] [address] [place], [address], 02/06/2021 12:13:25 02/07/20 21 02/06/2021 CBC AUTOM ATED SD 45.7 fL 36.4-4 6.3 Not Available [facility] [address] [place], [address], 02/06/2021 12:13:25 02/07/20 21 02/06/2021 CBC AUTOM ATED red cell distribution width 13.4 % 11.5-1 4.5 Not Available [facility] [address] [place], [address], 02/06/2021 12:13:25 02/07/20 21 02/06/2021 CBC AUTOM ATED platelet count 323 10*3/ uL 150-45 0 Not Available [facility] [address] [place], [address], 02/06/2021 12:13:25 02/07/20 21 02/06/2021 CBC AUTOM ATED mean platelet volume 9.0 fL 6.0-10 .8 Not Available [facility] [address] [place], [address], 02/06/2021 12:13:25 02/07/20 21 02/06/2021 CBC AUTOM ATED neutrophils relative 52.7 % Not Available [facility] [address] [place], [address], 02/06/2021 12:13:25 02/07/20 21 02/06/2021 CBC AUTOM ATED immature granulocytes relative 0.1 % Not Available [facility] [address] [place], [address], 02/06/2021 12:13:25 02/07/20 21 02/06/2021 CBC AUTOM ATED lymphocytes relative 35.1 % Not Available [facility] [address] [place], [address], 02/06/2021 12:13:25 02/07/20 21 02/06/2021 CBC AUTOM ATED monocytes relative 8.6 % Not Available [facility] [address] [place], [address], 02/06/2021 12:13:25 02/07/20 21 02/06/2021 CBC AUTOM ATED eosinophils relative 2.7 % Not Available [facility] [address] [place], [address], 02/06/2021 12:13:25 02/07/20 21 02/06/2021 CBC AUTOM ATED basophils relative 0.8 % Not Available [facility] [address] [place], [address], 02/06/2021 12:13:25 02/07/20 21 02/06/2021 CBC AUTOM ATED neutrophils absolute 5.2 10*3/ uL 1.5-6. 6 Not Available [facility] [address] [place], [address], 02/06/2021 12:13:25 02/07/20 21 02/06/2021 CBC AUTOM ATED immature granulocytes absolute 0.0 10*3/ uL 0.0-0. 2 Not Available [facility] [address] [place], [address], 02/06/2021 12:13:25 02/07/20 21 02/06/2021 CBC AUTOM ATED lymphocytes absolute 3.5 10*3/ uL 1.0-3. 5 Not Available [facility] [address] [place], [address], 02/06/2021 12:13:25 02/07/20 21 02/06/2021 CBC AUTOM ATED monocytes absolute 0.9 10*3/ uL 0.0-1. 0 Not Available [facility] [address] [place], [address], 02/06/2021 12:13:25 02/07/20 21 02/06/2021 CBC AUTOM ATED eosinophils absolute 0.3 10*3/ uL 0.0-0. 7 Not Available [facility] [address] [place], [address], 02/06/2021 12:13:25 02/07/20 21 02/06/2021 CBC AUTOM ATED basophils absolute 0.1 10*3/ uL 0.0-0. 1 Not Available [facility] [address] [place], [address], 02/06/2021 12:13:25 02/07/20 21 02/06/2021 LDH LDH 137 U/L 140-27 1 low Not Available [facility] [address] [place], [address], 02/06/2021 12:22:46 02/07/20 21 02/06/2021 HIV 4TH GEN ANTIG EN/AN TIBOD Y SCREE TREVA HIV combo Ab/Ag Nonrea ctive nonrea ctive A nonre activ e resul t does not precl ude the possi bilit y of expos ure to HIV or infec tion with HIV. Testi ng of newbo rns or anyon e under the age of twelv e has not been appro gael or clear ed by the U.[place]. Food and Drug Admin istra tion. It has been valid ated by [facility] . The resul ts are not inten ded to be used as the sole means for clini jamee diagn osis, and shoul d be sent out for formerly [facility] er evalu ation . Not Available [facility] [address] [place], [address], 02/06/2021 15:31:34 02/07/20 21 02/06/2021 TSH REFLE X TO FT4 TSH 1.33 mIU/L 0.45-5 .33 Not Available [facility] [address] [place], [address], 02/06/2021 15:39:06 02/07/20 21 02/06/2021 HEPAT ITIS C ANTIB LIONEL hepatitis C Ab Negati ve negati ve Not Available [facility] [address] [place], [address], 02/06/2021 22:36:09 02/07/20 21 02/06/2021 RHEUM ATOID ARTHR ITIS PANEL BY FEIA ccp IgG 0.6 U/mL <=10.0 <7 U/ml NEGAT ALICIA 7-10 U/ml EQUIV OCAL >10 U/ml POSIT ALICIA Not Available [facility] [address] [place], [address], 02/07/2021 13:10:15 02/07/20 21 02/06/2021 RHEUM ATOID ARTHR ITIS PANEL BY FEIA rf IgA by feia 1.6 IU/mL <=20.0 <14 Negat alicia 14-20 Equiv ocal >20 Posit alicia Not Available [facility] [address] [place], [address], 02/07/2021 13:10:15 02/07/20 21 02/06/2021 RHEUM ATOID ARTHR ITIS PANEL BY FEIA rf IgM by feia 0.8 IU/mL <=5.0 <3.5 Negat alicia 3.5-5 Equiv ocal >5.0 Posit alicia Not Available [facility] [address] [place], [address], 02/07/2021 13:10:15 02/07/20 21 02/06/2021 HEPAT ITIS B SURFA CE ANTIG EN REFLE X TO CONFI RMATI ON hepatitis B surface antigen Negati ve negati ve Based on the non-r eacti ve HBsAg scree n, the HBsAg Confi rmati on test is not indic ated and there fore not perfo rmed. INTER PRETI VE INFOR MATIO N: Hepat itis B Surfa ce Ag This assay shoul d not be used for blood donor scree treva, assoc iated re-en try samuel cols, or for scree treva Human Cells , Tissu es and Cellu lar and Tissu e-Bas ed Produ cts (HCT/ P). Perfo rmed by [facility], [address], [place] [address] [phone] [email or web address] , Kylah guaman MD, Lab. Direc tor Not Available [facility] [address], [place], [address], 02/07/2021 19:37:49 02/07/20 21 02/06/2021 DONALD SCREE N REFLE X TO TITER anti-nuclear Ab (DONALD), IgG by genaro None Detect ed none detec If suspi cion of conne ctive tissu e disea se is stron g and DONALD EIA is negat alicia, consi tre testi ng for DONALD by IFA ([id number]). INTER PRETI VE INFOR MATIO N: Anti- Nucle ar Antib odies (DONALD) , IgG by GENARO Antin uclea r Antib odies (DONALD) , IgG by GENARO : DONALD speci mens are scree leonel using enzym e-jessica ked immun osorb ent assay (YESSI A) metho dolog y. All GENARO resul ts repor piero as Detec piero are furth er teste d by indir ect fluor escen t assay (IFA) using HEp-2 subst rate with an IgG-s pecif ic conju gate. The DONALD GENARO scree n is desig leonel to detec t antib odies again st dsDNA , histo constantino, SS-A (Ro), SS-B (La), Robbins , Robbins /TURBINE [employer]SEMBLER, Scl-7 0, Clarisse-1, centr omeri c prote ins, other antig ens extra cted from the HEp-2 cell nucle us. DONALD GENARO assay s have been repor piero to have lower sensi tivit ies than DONALD IFA for syste rosina autoi mmune rheum atic disea ses (SARD ). Negat alicia resul ts do not neces saril y rule out SARD. Perfo rmed By: [facility] [address] [place] [address] Labor atory Direc tor: Kylah guaman MD Not Available [facility] [address], [place], [address], 02/08/2021 01:54:47 05/18/2005/19/2021 CBC WITH DIFFE RENTI AL/PL ATELE T WBC 9.8 x10e3 /uL 3.4-10 .8 Not Available [facility] ([facility]) [address] [place], [address], 05/19/2021 04:08:49 05/18/2005/19/2021 CBC WITH DIFFE RENTI AL/PL ATELE T RBC 4.46 x10e6 /uL 3.77-5 .28 Not Available [facility] ([facility]) [address] [place], [address], 05/19/2021 04:08:49 05/18/20 21 05/19/2021 CBC WITH DIFFE RENTI AL/PL ATELE T hemoglobin 13.4 g/dL 11.1-1 5.9 Not Available [facility] ([facility]) [address] [place], [address], 05/19/2021 04:08:49 05/18/20 21 05/19/2021 CBC WITH DIFFE RENTI AL/PL ATELE T hematocrit 41.5 % 34.0-4 6.6 Not Available [facility] ([facility]) [address] [place], [address], 05/19/2021 04:08:49 05/18/20 21 05/19/2021 CBC WITH DIFFE RENTI AL/PL ATELE T MCV 93 fL 79-97 Not Available [facility] ([facility]) [address] [place], [address], 05/19/2021 04:08:49 05/18/20 21 05/19/2021 CBC WITH DIFFE RENTI AL/PL ATELE T MCH 30.0 pg 26.6-3 3.0 Not Available [facility] ([facility]) [address] [place], [address], 05/19/2021 04:08:49 05/18/20 21 05/19/2021 CBC WITH DIFFE RENTI AL/PL ATELE T MCHC 32.3 g/dL 31.5-3 5.7 Not Available [facility] ([facility]) [address] [place], [address], 05/19/2021 04:08:49 05/18/20 21 05/19/2021 CBC WITH DIFFE RENTI AL/PL ATELE T RDW 12.9 % 11.7-1 5.4 Not Available [facility] ([facility]) [address] [place], [address], 05/19/2021 04:08:49 05/18/20 21 05/19/2021 CBC WITH DIFFE RENTI AL/PL ATELE T platelets 335 x10e3 /uL 150-45 0 Not Available [facility] ([facility]) [address] [place], [address], 05/19/2021 04:08:49 05/18/20 21 05/19/2021 CBC WITH DIFFE RENTI AL/PL ATELE T neutrophils 51 % not estab. Not Available [facility] ([facility]) [address] [place] [address], [address], 05/19/2021 04:08:49 05/18/20 21 05/19/2021 CBC WITH DIFFE RENTI AL/PL ATELE T lymphs 36 % not estab. Not Available [facility] ([facility]) [address] [facility], [place], [address], 05/19/2021 04:08:49 05/18/20 21 05/19/2021 CBC WITH DIFFE RENTI AL/PL ATELE T monocytes 9 % not estab. Not Available [facility] ([facility]) [address] [facility], [place], [address], 05/19/2021 04:08:49 05/18/20 21 05/19/2021 CBC WITH DIFFE RENTI AL/PL ATELE T eos 3 % not estab. Not Available [facility] ([facility]) [address] [facility], [place], [address], 05/19/2021 04:08:49 05/18/20 21 05/19/2021 CBC WITH DIFFE RENTI AL/PL ATELE T basos 1 % not estab. Not Available [facility] ([facility]) [address] [facility], [place], [address], 05/19/2021 04:08:49 05/18/20 21 05/19/2021 CBC WITH DIFFE RENTI AL/PL ATELE T immature cells COUNSELING PSYCHOLOGIST Not Available [facility] ([facility]) [address] [place], [address], 05/19/2021 04:08:49 05/18/20 21 05/19/2021 CBC WITH DIFFE RENTI AL/PL ATELE T neutrophils (absolute) 5.1 x10e3 /uL 1.4-7. 0 Not Available [facility] ([facility]) [address] [place], [address], 05/19/2021 04:08:49 05/18/20 21 05/19/2021 CBC WITH DIFFE RENTI AL/PL ATELE T lymphs (absolute) 3.5 x10e3 /uL 0.7-3. 1 above high normal Not Available [facility] ([facility]) [address] [facility], [place], [address], 05/19/2021 04:08:49 05/18/20 21 05/19/2021 CBC WITH DIFFE RENTI AL/PL ATELE T monocytes(ab solute) 0.9 x10e3 /uL 0.1-0. 9 Not Available [facility] ([facility]) [address] [facility], [place], [address], 05/19/2021 04:08:49 05/18/20 21 05/19/2021 CBC WITH DIFFE RENTI AL/PL ATELE T eos (absolute) 0.3 x10e3 /uL 0.0-0. 4 Not Available [facility] ([facility]) [address] [facility], [place], [address], 05/19/2021 04:08:49 05/18/20 21 05/19/2021 CBC WITH DIFFE RENTI AL/PL ATELE T baso (absolute) 0.1 x10e3 /uL 0.0-0. 2 Not Available [facility] ([facility]) [address] [place], [address], 05/19/2021 04:08:49 05/18/20 21 05/19/2021 CBC WITH DIFFE RENTI AL/PL ATELE T immature granulocytes 0 % not estab. Not Available [facility] ([facility]) [address] [facility], [place], [address], 05/19/2021 04:08:49 05/18/20 21 05/19/2021 CBC WITH DIFFE RENTI AL/PL ATELE T immature grans (abs) 0.0 x10e3 /uL 0.0-0. 1 Not Available [facility] ([facility]) [address] [facility], [place], [address], 05/19/2021 04:08:49 05/18/20 21 05/19/2021 CBC WITH DIFFE RENTI AL/PL ATELE T NRBC COUNSELING PSYCHOLOGIST Not Available [facility] ([facility]) [address] [facility], [place], [address], 05/19/2021 04:08:49 05/18/20 21 05/19/2021 CBC WITH RAQUEL CID AL/PL ATELE T hematology comments: COUNSELING PSYCHOLOGIST Not Available [facility] ([facility]) [address] [facility], [place], [address], 05/19/2021 04:08:49 05/18/20 21 05/19/2021 COMP. METAB OLIC PANEL (14) glucose 78 mg/dL 65-99 Not Available [facility] ([facility]) [address] [facility], [place], [address], 05/19/2021 04:08:49 05/18/20 21 05/19/2021 COMP. METAB OLIC PANEL (14) BUN 15 mg/dL 6-24 Not Available [facility] ([facility]) [address] [facility], [place], [address], 05/19/2021 04:08:49 05/18/20 21 05/19/2021 COMP. METAB OLIC PANEL (14) creatinine 0.73 mg/dL 0.57-1 .00 Not Available [facility] ([facility]) [address] [facility], [place], [address], 05/19/2021 04:08:49 05/18/20 21 05/19/2021 COMP. METAB OLIC PANEL (14) eGFR if nonafricn AM 95 mL/mi n/1.7 3 >59 Not Available [facility] ([facility]) [address] [facility], [place], [address], 05/19/2021 04:08:49 05/18/20 21 05/19/2021 COMP. METAB OLIC PANEL (14) eGFR if africn AM 110 mL/mi n/1.7 3 >59 In accor dance with recom riria ticorazon from the NKF-A SN Task force , [facility] is in the proce ss of updat ing its eGFR calcu latio n to the 2020 CKD-E PI creat inine equat ion that estim ates kidne y funct ion witho ut a race varia ble. Not Available [facility] ([facility]) [address] [facility], [place], [address], 05/19/2021 04:08:49 05/18/20 21 05/19/2021 COMP. METAB OLIC PANEL (14) BUN/creatini ne ratio 03-29 Not Available [facility] ([facility]) [address] [facility], [place], [address], 05/19/2021 04:08:49 05/18/20 21 05/19/2021 COMP. METAB OLIC PANEL (14) sodium 141 mmol/ L 134-14 4 Not Available [facility] ([facility]) [address] [facility], [place], [address], 05/19/2021 04:08:49 05/18/20 21 05/19/2021 COMP. METAB OLIC PANEL (14) potassium 4.5 mmol/ L 3.5-5. 2 Speci men recei gael hemol yzed. Value may be incre ased by hemol ysis. Clini jamee corre latio n indic ated. Not Available [facility] ([facility]) [address] [place], [address], 05/19/2021 04:08:49 05/18/20 21 05/19/2021 COMP. METAB OLIC PANEL (14) chloride 104 mmol/ L 96-106 Not Available [facility] ([facility]) [address] [place], [address], 05/19/2021 04:08:49 05/18/20 21 05/19/2021 COMP. METAB OLIC PANEL (14) carbon dioxide, total 22 mmol/ L 20-29 Not Available [facility] ([facility]) [address] [place], [address], 05/19/2021 04:08:49 05/18/20 21 05/19/2021 COMP. METAB OLIC PANEL (14) calcium 9.1 mg/dL 8.7-10 .2 Not Available [facility] ([facility]) [address] [facility] [place], [address], 05/19/2021 04:08:49 05/18/20 21 05/19/2021 COMP. METAB OLIC PANEL (14) protein, total 7.2 g/dL 6.0-8. 5 Not Available [facility] ([facility]) [address] [facility] [place], [address], 05/19/2021 04:08:49 05/18/2005/19/2021 COMP. METAB OLIC PANEL (14) albumin 4.3 g/dL 3.8-4. 9 Not Available [facility] ([facility]) [address] [facility] [place], [address], 05/19/2021 04:08:49 05/18/2005/19/2021 COMP. METAB OLIC PANEL (14) globulin, total 2.9 g/dL 1.5-4. 5 Not Available [facility] ([facility]) [address] [facility] [place], [address], 05/19/2021 04:08:49 05/18/2005/19/2021 COMP. METAB OLIC PANEL (14) A/G ratio 1.5 1.2-2. 2 Not Available [facility] ([facility]) [address] [facility] [place], [address], 05/19/2021 04:08:49 05/18/20 21 05/19/2021 COMP. METAB OLIC PANEL (14) bilirubin, total 0.3 mg/dL 0.0-1. 2 Not Available [facility] ([facility]) [address] [facility] [place], [address], 05/19/2021 04:08:49 05/18/20 21 05/19/2021 COMP. METAB OLIC PANEL (14) alkaline phosphatase 89 IU/L 44-121 Ple ase note refer ence marilou taylor Not Available [facility] ([facility]) [address] [facility], [place], [address], 05/19/2021 04:08:49 05/18/20 21 05/19/2021 COMP. METAB OLIC PANEL (14) AST (SGOT) 24 IU/L 0-40 Not Available [facility] ([facility]) [address] [place], [address], 05/19/2021 04:08:49 05/18/20 21 05/19/2021 COMP. METAB OLIC PANEL (14) ALT (SGPT) 11 IU/L 0-32 Not Available [facility] ([facility]) [address] [place], [address], 05/19/2021 04:08:49 05/18/20 21 05/19/2021 LIPID PANEL cholesterol, total 221 mg/dL 100-19 9 above high normal Not Available [facility] ([facility]) [address] [place], [address], 05/19/2021 04:08:50 05/18/20 21 05/19/2021 LIPID PANEL triglyceride s 133 mg/dL 0-149 Not Available [facility] ([facility]) [address] [place], [address], 05/19/2021 04:08:50 05/18/20 21 05/19/2021 LIPID PANEL HDL cholesterol 63 mg/dL >39 Not Available [facility] ([facility]) [address] [place], [address], 05/19/2021 04:08:50 05/18/20 21 05/19/2021 LIPID PANEL VLDL cholesterol jamee 23 mg/dL 5-40 Not Available [facility] ([facility]) [address] [facility], [place], [address], 05/19/2021 04:08:50 05/18/20 21 05/19/2021 LIPID PANEL LDL chol calc ([facility]) 135 mg/dL 0-99 above high normal Not Available [facility] ([facility]) [address] [facility], [place], [address], 05/19/2021 04:08:50 05/18/20 21 05/19/2021 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 Not at all Not Available [facility] [address] [place], [address], 05/24/2021 14:55:16 05/24/20 21 05/24/2021 Selena tilley, Brief Inter venti on, and Refer ral to Treat ment* In the past 2 weeks, have you been unable to stop or control worrying? Not at all Not Available [facility] [address] [place], [address], 05/24/2021 14:55:16 05/24/20 21 05/24/2021 Selena tilley, Brief Inter venti on, and Refer ral to Treat ment* How many times in the last year have you used drugs/prescr iption meds for non-medical reasons? None Not Available [facility] [address] [place], [address], 05/24/2021 14:55:16 05/24/20 21 05/24/2021 Scredeniz foremang, Brief Inter venti on, and Refer ral to Treat ment* How many times in the past year have you had 4 drinks in 1 day? 0 Not Available [facility] [address] [place], [address], 05/24/2021 14:55:16 05/24/20 21 05/24/2021 Scredeniz foremang, Brief Inter venti on, and Refer ral to Treat ment* Positive or Negative? negati ve Not Available [facility] [address] [place], [address], 05/24/2021 14:55:16 05/24/20 21 05/24/2021 Selena tilley, Brief Inter venti on, and Refer ral to Treat ment* BH Referral? Not needed at this time Not Available [facility] [address] [place], [address], 05/24/2021 14:55:16 08/30/19 21 MAMMO , selena tilley, bilat eral This is a summar y report . The comple te report is availa ble in the [facility]'s medica l record . If you cannot access the medica l record , please contac t the sendin anshu ochoa for a detail ed fax or copy. EXAMIN ATION( S) PERFOR MED Patien t is seen for Bilate ral digita l screen ing mammog bahman. Study was evalua piero with a [employer] er aided detect ion (CAD) system . VALENTE Hopson is a 49 y.o. female and is being seen for Encoun ter for screen ing mammog bahman for malign ant neopla sm of breast . No known family histor y of breast cancer . COMPAR LELA TO PREVIO US EXAMIN ATION( S) Compar ed to: 2019 Bilate ral digita l screen ing mammog bahman and 2018 Bilate ral digita l screen ing mammog bahman FINDIN GS The breast s are almost entire ly fatty. There is no eviden ce of suspic ious masses , calcif icatio ns, or other abnorm al findin gs. IMPRES BECKY Bilate ral assess ment: Negati ve. Routin e Screen ing Mammog bahman in 1 Yr is recomm ended. Overal l BI-RAD S catego ry: 1 - Negati ve [id number] [facility] (Referrals) [address] [place] [address], [address], 02/25/2022 11:58:35 09/13/19 22 selena LEE bilat eral This is a summar y report . The comple te report is availa ble in the [facility]'s medica l record . If you cannot access the medica l record , please contac t the sendin anshu ochoa for a detail ed fax or copy. EXAMIN ATION( S) PERFOR [facility] is seen for Bilate ral digita l screen ing mammog bahman. Study was evalua piero with a comput er aided detect ion (CAD) system . VALENTE Hopson is a 50 y.o. female and is being seen for Encoun ter for screen ing mammog bahman for malign ant neopla sm of breast . No known family histor y of breast cancer . COMPAR LELA TO PREVIO US EXAMIN ATION( S) Compar ed to: 2020 Bilate ral digita l screen ing mammog bahman and 2019 Bilate ral digita l screen ing mammog bahman FINDIN GS The breast s are almost entire ly fatty. There has been no signif icant interv al change . Right There is no eviden ce of suspic ious masses , calcif icatio ns, or other abnorm al findin gs in the right breast . Left There is no eviden ce of suspic ious masses , calcif icatio ns, or other abnorm al findin gs in the left breast . IMPRES BECKY Right breast assess ment: Negati ve. Left breast assess ment: Negati ve. Routin e Screen ing Mammog bahman in 1 Yr is recomm ended for both breast s. Overal l BI-RAD S catego ry: 1 - Negati ve [facility] (Referrals) [address] [place], [address], 02/25/2022 11:58:19 10/26/19 23 brefrederick t img scree treva bilat eral This is a summar y report . The comple te report is availa ble in the patien t's medica l record . If you cannot access the medica l record , please contac t the sendin g organi gabriela for a detail ed fax or copy. EXAMIN ATION( S) [facility] l screen ing mammog bahman. Study was evalua piero with a [employer] er aided detect ion (CAD) system . VALENTE Hopson is a 52 y.o. female and is being seen for Encoun ter for screen ing mammog bahman for malign ant neopla sm of breast . No known family histor y of breast cancer . COMPAR LELA TO PREVIO US EXAMIN ATION( S) Compar ed to: 2021 Bilate ral digita l screen ing mammog bahman and 2020 Bilate ral digita l screen ing mammog bahman FINDIN GS The breast s are almost entire ly fatty. Right There is no eviden ce of suspic ious masses , calcif icatio ns, or other abnorm al findin gs in the right breast . Left There is an asymme try in the left breast in the retroa reolar positi on approx imally 2 cm deep to the nipple . This is not well seen on the MLO view. IMPRES BECKY Right breast assess ment: Negati ve. Routin e Screen ing Mammog bahman in 1 Yr is recomm ended. Left breast assess ment: Incomp lete: Needs Additi onal Imagin g Evalua tion. Additi onal Imagin g (Diagn ostic 3D & Breast US if needed ) is recomm ended. Overal l BI-RAD S catego ry: 0 - Incomp lete: Needs Additi onal Imagin g Evalua tion [email or web address] [facility] (Referrals) [address] [place], [address], 10/31/2022 23:11:21 11/02/19 23 breas t img diagn ostic left This is a summar y report . The comple te report is availa ble in the patien t's medica l record . If you cannot access the medica l record , please contac t the sendin g organi zation for a detail ed fax or copy. EXAMIN ATION( S) PERFOR MED Brenna cardona is seen for Left digita l diagno stic mammog bahman Breast Img ultras ound breast left limite d. Study was perfor med with 2D/3D mammog candie. VALENTE Hopson is a 52 y.o. female and is being seen for Abnorm al mammog bahman. No known family histor y of breast cancer . COMPAR LELA TO PREVIO US EXAMIN ATION( S) Compar ed to: 2022 Bilate ral digita l screen ing mammog bahman, 2021 Bilate ral digita l screen ing mammog bahman, and 2020 Bilate ral digita l screen ing mammog bahman FINDIN GS Left The left breast is almost entire ly fatty. There is a persis tent mass in the 12 o'cloc k positi on 2 cm from the nipple . There is no additi onal abnorm ality. Ultras ound og the left breast demons trates an anecho ic cyst at 12 o'cloc k 2 cm from the nipple measur ing 0.7 x 0.4 x 0.7 cm. IMPRES BECKY Left breast assess ment: Benign . Routin e Screen ing Mammog bahman in 1 Yr is recomm ended. Overal l BI-RAD S catego ry: 2 - Benign dlutchka [facility] (Referrals) [address] [place], [address], 11/03/2022 23:02:50 11/02/19 23 bi US breas t left limit ed This is a summar y report . The comple te report is availa ble in the patien t's medica l record . If you cannot access the medica l record , please contac t the sendin g organi zation for a detail ed fax or copy. EXAMIN ATION( S) PERFOR MED Patien t is seen for Left digita l diagno stic mammog bahman Breast Img ultras ound breast left limite d. Study was perfor med with 2D/3D mammog candie. VALENTE Hopson is a 52 y.o. female and is being seen for Abnorm al mammog bahman. No known family histor y of breast cancer . COMPAR LELA TO PREVIO US EXAMIN ATION( S) Compar ed to: 2022 Bilate ral digita l screen ing mammog bahman, 2021 Bilate ral digita l screen ing mammog bahman, and 2020 Bilate ral digita l screen ing mammog bahman FINDIN GS Left The left breast is almost entire ly fatty. There is a persis tent mass in the 12 o'cloc k positi on 2 cm from the nipple . There is no additi onal abnorm ality. Ultras ound og the left breast demons trates an anecho ic cyst at 12 o'cloc k 2 cm from the nipple measur ing 0.7 x 0.4 x 0.7 cm. IMPRES BECKY Left breast assess ment: Benign . Routin e Screen ing Mammog bahman in 1 Yr is recomm ended. Overal l BI-RAD S catego ry: 2 - Benign dlutchka [facility] ([facility]) [address] [place] [address], [address], 11/03/2022 23:02:50 Result Notes None recorded. Problems Name Problem SNOMED Code Status Onset Date Resolution Date Notes Provider Name and Address Organization Details Recorded Time Essential hypertens ion 74038826 Active 2020 Asmita Luz MD [address] [place] [address], [address], [facility] 15:40:48 Depressiv e disorder 89368623 Active 2012 Recorded Elsewhere: No;Locatio n: Mora miranda [facility];Neelima rce: EHR;Chroni c: Y;Practice ID: [id number] Not Available [facility] 7 10:33:49 Primary malignant neoplasm of colon 31564481 Active 2012 Recorded Elsewhere: No;Locatio n: [facility];Neelima rce: EHR;Chroni c: Y;Practice ID: [id number] Not Available [facility] 10:33:49 Problem Notes None recorded. Procedures Surgical History Date Name Laterality Status Provider Name and Address Organization Details Recorded Time 0 Date of Last Mammogram completed Marilyn Pierce RN [facility] 05/02/2020 11:16:40 9 Any Surgical History completed Marilyn Pierce RN [facility] 05/02/2020 11:21:21 Imaging Results Imaging Date Name Status LastModified by [facility] Details LastModified Time 08/30/2020 MAMMO, screening, bilateral completed [id number] [facility] (Referrals) [address] , [place], [address], 02/25/2022 11:58:35 09/12/2021 MAMMO, screening, bilateral completed [id number] [facility] (Referrals) [address] , [place], [address], 02/25/2022 11:58:19 10/25/2022 breast img screening bilateral completed dlutch [facility] (Referrals) [address] , [place], [address], 10/31/2022 23:11:21 11/01/2022 [facility] [address] , [place], [address], 11/03/2022 23:02:50 11/01/2022 bi [facility] breast left limited [facility] [address] , [place], [address], 11/03/2022 23:02:50 Procedure Notes None recorded. Medical Equipment None Reported. Allergies Allergen ID Allergen Name Allergen Category Reaction Reaction Severity Criticality Documentation Date Start Date Code Code System Note Provider Name and Address Organization Details Recorded Time 50507 sulfanila mide medicatio n other Not available Not available 09/04/20162012 95300 RxNorm React ion: Unkno wn; Comme nt: [facility];Int olera nce: N;All ergyI d: 2833; Pract ice ID: [id number]; Not Available [facility] 7 14:11:42 26138 ibuprofen medicatio n other Not available Not available 09/04/20162012 5640 RxNorm swell ing aroun d eyes Marilyn Pierce RN [facility] 0 11:15:20 Medications Name Sig Start Date Stop Date Status Note LastModified by Organization Details LastModified Time lisinopri l 20 mg tablet TAKE 1 TABLET BY MOUTH ONCE DAILY FOR BLOOD PRESSURE 12/29 completed dose increase d to 40 mg Not Available Not Available Not Available amlodipin e 5 mg tablet Take 1 tablet every day by oral route. active Not Available Not Available No t Available lisinopri l 10 mg tablet Take 1 tablet every day by oral route. 10/02 completed Not Available Not Available Not Available [facility] [facility] 10 mg tablet Take 1 tablet every day by oral route. active Not Available Not Available No t Available lisinopri l 40 mg tablet TAKE 1 TABLET BY MOUTH ONCE DAILY FOR BLOOD PRESSURE 2021 active Not Available Not Available Not Avai lable fluticaso ne propionat e 50 mcg/actua tion nasal spray,braden pension USE 1 SPRAY IN EACH NOSTRIL ONCE DAILY NEEDED 2021 active Not Available Not Available Not Avai lable escitalop bahman 10 mg tablet 10/02 completed Not Available Not Available Not Available escitalop bahman 20 mg tablet TAKE 1 TABLET BY MOUTH ONCE DAILY 2021 active Not Available Not Available Not Avai lable Lo Loestrin Fe 1 mg-10 mcg (24)/10 mcg (2) tablet 12/28 completed Not Available Not Available Not Available Vitals Date Recorded Body height Body mass index (BMI) Body weight Body temperature Respiratory rate Heart rate Oxygen saturation Oxygen saturation in Arterial blood by Pulse oximetry Systolic blood pressure Diastolic blood pressure Provider Name and Address Organization Details Last Updated DateTime 1 172.72 cm 31.1 kg/m2 40942.6 4 g 97.9 [degF] 17 /min 81 /min 97 % 97 % 156 mm[Hg] 100 mm[Hg] Lesly López RN [facility] 1 14:56:54 Date Recorded Body height Body mass index (BMI) Body weight Body temperature Heart rate Respiratory rate Systolic blood pressure Diastolic blood pressure Systolic blood pressure Diastolic blood pressure Provider Name and Address Organization Details Last Updated DateTime 1 172.72 cm 31.8 kg/m2 06083.8 1 g 98.7 [degF] 81 /min 18 /min 143 mm[Hg] 98 mm[Hg] 148 mm[Hg] 97 mm[Hg] Kayla Keita CMA [facility] 1 11:53:24 Social History Question Answer Notes LastModified by Organization Details LastModified Time Tobacco Smoking Status Never Smoker Marilyn Pierce RN [facility], [facility] 05/02/2020 11:17:41 Do You Have An Advance Directive? Yes Information not available 05/02/2020 What Is Your Level Of Alcohol Consumption? None Information not available 05/02/2020 Are You Currently Sexually Active With Anyone Who Has Traveled (within The Last 12 Weeks) To A Zika-affected Area? No Information not available 12/28/2020 Are You Blind Or Do You Have Difficulty Seeing? No Information not available 12/28/2020 What Is Your Level Of Caffeine Consumption? Moderate Information not available 05/02/2020 How Much Tobacco Do You Chew? None Information not available 05/02/2020 Concerns About Meeting Basic Needs (food, Housing, Heat, Etc)? No Information not available 05/02/2020 Are You Currently Employed? Yes Information not available 05/02/2020 Are You Deaf Or Do You Have Serious Difficulty Hearing? No Information not available 12/28/2020 What Type Of Diet Are You Following? REGULAR Information not available 05/02/2020 Which Illicit Or Recreational Drugs Have You Used? None Information not available 05/02/2020 Do You Or Have You Ever Used E-cigarettes Or Vape? 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 Information not available 05/02/2020 Are There Any Guns Present In Your Home? Yes Information not available 12/28/2020 Hard Of Hearing Or Deaf In One Or Both Ears? No Information not available 05/02/2020 Have You Recently Or Are You Planning To Travel To An Area With Zika Virus? No Information not available 12/28/2020 Do You Use Insect Repellent Routinely? No Information not available 12/28/2020 Legally Blind In One Or Both Eyes? No Wears Glasses Information not available 05/02/2020 Where [facility] You Live? [facility] Information not available 12/28/2020 Live Alone Or With Others? With Others Information not available 05/02/2020 If You Have Guns In Your Home, Are They Stored Safely? Yes Information not available 05/02/2020 PRAPARE Screening Completed On: 12/28/2020 Information not available 12/28/2020 Are You Worried About Losing Your Housing? No Information not available 12/28/2020 In The Past Year Have You Or Any Of Your Family Members Been Unable To Get FOOD When It Was Really Needed? No Information not available 12/28/2020 In The Past Year Have You Or Any Of Your Family Members Been Unable To Get MEDICINE Or HEALTH CARE When It Was Really Needed? No Information not available 12/28/2020 Has Lack Of Transportation Kept You From Medical Appointments, Meetings, Work, Or From Getting Things Needed For Daily Living? No Information not available 12/28/2020 In The Past Year, Have You Been Afraid Of Your Partner Or Ex-partner? No Information not available 12/28/2020 Does The Patient Have Social Needs That Need To Be Addressed? No Information not available 12/28/2020 How Long Have You Lived There? 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 05/24/2021 [email or web address] Information not available 05/24/2021 How Many Children Do You Have? 0 Information not available 06/06/2020 Do You Use Your Seat Belt Or Car Seat Routinely? Yes Information not available 12/28/2020 Seat Belts Used Routinely Yes Information not available 05/02/2020 Are You Sexually Active? Yes Information not available 05/02/2020 Smoke Alarm In Home Yes Information not available 05/02/2020 Do You Have Smoke And Carbon Monoxide Detectors In Your Home? Yes Information not available 12/28/2020 Are You Passively Exposed To Smoke? No Information not available 12/28/2020 Do You Or Have You Ever Used Smokeless Tobacco? Never Used Smokeless Tobacco Information not available 05/02/2020 How Much Tobacco Do You Smoke? No Information not available 05/02/2020 General Stress Level Medium Information not available 05/02/2020 Do You Use Sunscreen Routinely? Yes Information not available 05/02/2020 Have You Recently Traveled Abroad? No Information not available 12/28/2020 Sex: Unknown Functional Status Question Answer Note LastModified by Organizat ion Details LastModified Time Are you able to walk? YESWOREST Information not available 05/02/2020 Are you able to care for yourself? Yes Information not available 05/02/2020 What is your exercise level? Occasional Information not available 05/02/2020 Mental Status None recorded. Family History Relationship Description Onset Age of this Age Resolved Age Notes LastModified by Organization Details LastModified Time Mother Malignant melanoma Not available 2019 11:17:08 Medical History Condition Response Allergies (Food, seasonal, environmental ) N Coronary Artery Disease N Other N Gout N Hyperthyroidism N Breast Cancer N Blood Transfusion N Hypothyroidism N Dermatologic Disorders N COPD N Defects or Inherited Disease N Developmental or Behavioral Disorders N Gestational Diabetes N History of STI N Deep Vein Thrombosis N Polycystic ovary syndrome N Meniere's disease N Anxiety Disorder N Muscle, Joint, or Bone Problems N Autoimmune disease N Obesity N Vision or Eye Problems N Head Injury/Concussion N Infertility N Varicosities N Stroke N Neurologic/Epilepsy N Endometriosis N Bladder or Kidney Problems N Back Injury N High Cholesterol N Psychiatric/Mental Health Condition N Fibromyalgia N Headaches N Kidney Disease N Ear or Hearing Problems N Hospitalizations N Prostate Cancer N Hematologic disorders/Anemia N GI Problems N Acne N ADD/ADHD N Eating Disorder N Anemia N MRSA exposure N Brain Injury N Heart Attack (ID) N Ovarian Cancer N Diabetes N Bedwetting N Hepatitis/Liver Disease N Bleeding Disorder N Tuberculosis N AIDS/HIV N Congestive Heart Failure (CHF) N Diverticulitis N Abuse/Domestic Violence N Asthma N Trauma/Violence N Substance Abuse N Depression/ depression N Heart Disease N Pulmonary Embolism N Pre-Eclampsia N Hypertension N Osteoporosis N Gynecological History Statement/Question Response Date of Last Mammogram 01/05/2020 Date of LMP 04/18/2020 Do you receive TRIPLE VALVE TESTER Services within [facility]? N Obstetrics History GPAL:G 0 P 0 0 0 0 Immunizations Vaccine Type Date Status Note Provider Nam e and Address Organization Details Recorded Time Influenza, split virus, quadrivalent, PF 05/24/2021 completed Lesly López RN [facility], [facility] 05/25/2021 08:54:46 COVID-19, mRNA, LNP-S, PF, 100 mcg/0.5mL dose or 50 mcg/0.25mL dose 05/24/2021 completed Lesly López RN [facility] 05/25/2021 08:54:46 COVID-19, mRNA, LNP-S, PF, 100 mcg/0.5mL dose or 50 mcg/0.25mL dose 07/13/2020 seu Carroll [facility] 08/10/2020 14:22:36 COVID-19, mRNA, LNP-S, PF, 100 mcg/0.5mL dose or 50 mcg/0.25mL dose 08/10/2020 completed Lesly López RN [facility] 05/24/2021 15:00:21 Influenza, split virus, quadrivalent, PF 05/02/2020 completed Marilyn Pierce RN [facility], [facility] 05/02/2020 11:56:23 Tdap 05/02/2020 completed Marilyn Pierce RN [facility], [facility] 05/02/2020 11:56:44 Past Encounters Encounter ID Performer Location Encounter Start Date Encounter Closed Date Diagnosis/Indication Diagnosis SNOMED-CT Code Diagnosis ICD10 Code Diagnosis Note [id number] MD NIHARIKA [facility] [address] [place] [address] 05/02/2020 11:00:18 05/03/2020 10:48:32 Screening for disorder 704820145 Z13.9 Elevated blood-pressure reading without diagnosis of hypertension 321265600 R03.0 Active or passive immunization 404486205 Z23 Depressive disorder 3548 9007 F32.9 [id number] MD MEHUL [facility] [address] [place] [address] 05/30/2020 15:59:03 06/05/2020 11:17:57 Depressive disorder 10573851 F32.9 Leukocytosis 987612672 D 72.829 Liver enzy mes level above reference range 446203446 R74.8 [id number] Asmita Luz MD [facility] [address] [place] [address] 06/13/2020 15:42:51 06/14/2020 08:15:01 Depressive disorder 61074850 F32.9 cont lexapro Leukocytosis 433911225 D 72.829 Liver enzy mes level above reference range 590161781 R74.8 [id number] MD NIHARIKA [facility] [address] [place] [address] 10/02/2020 16:05:22 10/04/2020 08:40:04 Leukocytosis 380906936 D72.829 Allergic rhinitis 084881 04 J30.9 otc claritin, nasal rinse Perimenopausal state 927 8117303 17932 Z78.0 Essential hypertension 40293782 I10 monitor [id number] MD MEHUL [facility] [address] [place] [address] 12/28/2020 11:33:42 01/01/2021 11:06:50 Screening for disorder 741135693 Z13.9 Depressive disorder 3548 9007 F32.9 cont lexapro Primary ma lignant neoplasm of colon 36580372 C18.[address] soto - having done q 5 years - due again in 2024 Leukocytosis 899273014 D 72.829 persistent Hyperlipidemia 44570581 E78.5 Atopic dermatitis 857541 01 L20.9 otc hydrocorti sone bid x 1-2 weeks then vaseline ad nabila [id number] Asmita Luz MD [facility] [address] [place] [address] 05/24/2021 14:45:27 05/28/2021 13:04:45 Screening for disorder 126863905 Z13.9 Obese class I 1322062415 05635 E66.9 Body mass index 30+ - obesity 669507846 Z68.31 Dietary ma nagement surveillance 863218666 Z71.3 Exercises education, guidance, and counseling 567048199 Z71.82 Active or passive immunization 344666596 Z23 Essential hypertension 42630762 I10 monitor Hyperlipidemia 65859052 E78.5 diet and exercise [id number] Asmita Luz MD [facility] [facility] [address] [place] [address] 06/19/2021 14:24:29 06/20/2021 07:53:41 Essential hypertension 34181373 I10 monitor bp- wait 5 minutes and take - also take bp when dizzy - may actually need to cut amlodipine in half Health Concerns Section Related Observation LastModified by Organization Detai ls LastModified Time None Recorded Concern Status LastModified by Organization Details LastModified Time None Recorded Advance Directives Directive Y: Payers Encounter Date Sequence Insurance Name Policy Number Policy Donovan Covered Member ID Donovan Member ID Guarantor Name 06/13/2020 1 [employer] ([facility]) [id number] America Branca [id number] America Branca 10/02/2020 [employer] ([facility]) [id number] America Branca [id number] America Branca 12/28/2020 1 [employer] ([facility]) [id number] America Branca [id number] America Branca 05/24/2021 1 [employer] ([facility] [id number] America Hopson [id number] America Hopson 06/19/2021 1 [employer] ([place]) [id number] America Hopson [id number] America Hopson Notes Date Note Type Note Provider Name and Address Organization Details Recorded Time 06/13/2020 text/html labs reviewed pt had labs done with dr bauman in 01/23 - reviewed again today, lft elevated - does not drink or take tylenol, wbc also elevated - wbc is now better but still slightly elevated, lft normal 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 [employer] Asmita Luz MD [address] [place], [address], [facility] 06/13/2020 15:59:56 10/02/2020 text/html labs reviewed- pt doing well - no h/a or visual change - bp ok but will sometimes run at 90 diastolic - Asmita Luz MD [address] [place], [address], [facility] 10/02/2020 16:19:35 12/28/2020 text/html labs reviewed pt c/o itchy rash on back of her neck Asmita Luz MD [address] [place], [address], [facility] 12/28/2020 13:47:42 05/24/2021 text/html labs reviewed - pt bp running high at home as well Asmita Luz MD [address] [place], [address], [facility] 05/24/2021 15:41:47 06/19/2021 text/html pt reports bp when she takes it is about 140/90 but she does not wait 5 minutes prior to taking and also will have some dizziness if she gets up quickly Asmita Luz MD [address] [place], [address], [facility] 06/19/2021 14:36:13 OBGyn Episode No OBEpisode recorded.
--- OUTSIDE RECORDS SUMMARY | 2024-08-12 13:12 | XMS_ITS | Continuity of Care Document ---
Author Organization [facility] Address [address] [place] [address] Phone Care Team Providers Care [employer] Bra[employer] Bonder Name Role Phone Homer Stacy MD Unavailable Unavailable Allergies, Adverse Reactions, Alerts Substance Reaction Status Criticality Sulfa (Sulfonamide Antibiotics) Active No Information ibuprofen Active No Information Medications Medication Instructions Dosage Effective Dates (start - stop) Status Comments Lexapro 10 mg tablet take 1 tablet by oral route every day 10 MG - Active Medrol (Roldan) 4 mg tablets in a dose pack take by Oral route take as indicated Not Available - Active Pennsaid 20 mg/gram/actuation (2 %) topical soln in metered-dose pump apply 2 pump by topical route 2 times every day to the affected knee(s) 40 MG - Active CLARITIN (unknown strength) take 1 tablet by oral route every day Not Available - Active ORTHO TRI-CYCLEN (unknown strength) take 1 tablet by oral route every day Not Available - Active Procedures Procedure Date Calcaneus Xray Min 2 Views Office/outpatient visit,new, mod 2016 Office/outpatient visit,new, mod 2016 Foot Plastic Dilicone Or Equal Heel Stab ilizer Eac Foot Plastic Dilicone Or Equal Heel Stab ilizer Eac Advance Directives Directive Yes / No Effective Date File Name No Information Encounters Encounter Description Practice Location Reason(s) For Visit Diagnoses Date Provider Providers Copied on Encounter [facility], [address] [place] [address], [id number], [place] tel:[phone] [facility] No Information Tawanna Coronel. [address], [place], [id number], . tel:[phone] Office/outpat ient visit,new, mod [facility], [address], [place], [id number], tel:[phone] [facility] foot pain equally on both sides (chief complaint) Pain in unspecified footPlantar fasciitis, bilateral Chantal Samuel. [address], [place], [id number], . tel:[phone] [facility], [address] [place] [address], [id number], tel:[phone] [facility] No Information Chantal Samuel. [address], [place], [id number], . tel:[phone] Referring Provider: Lizzie Heard, [address] [place] [address], [address]. tel:[phone] Family History Family Member Type Diagnosis Age At Onset No Information Payers Payer name Insurance type Covered libertarian ID Authoriza tigwendolyn(s) [facility] [id number] Social History Type Description Quantity Date Captured Comments Sex Female Smoking Status No Information Chief Complaint And Reason For Visit No Information Reason For Referral Reason For Referral No Information Plan Of Treatment Date Type Action Status Future Order: Radiology Order Ca lcaneus Xray Min 2 Views ([id number]), Ordered on: Ordered History Of Present Illness Encounter Date Complaint History Of Prese nt Illness foot pain equally on both sides Ms Hopson is a 46 year old female who complains of foot pain equally on both sides. She presents with pain on the right and left side equally. She indicates the injury occurred at home. America states that the symptoms began as the result of unsure. The symptoms occur intermittently. The problem is unchanged. Currently the patient states that the symptoms are moderate-severe. The pain is described as dull, sharp and piercing. The symptoms occur with activity. Functional Status Date Functional Assessmen t No Information Instructions Date Instruction Additional Infor mation No Information Assessments Type Assessment Date No Information Patient Care Teams Name Effective Dates (start - stop) Status Members No Information
[2024-08-12 14:20] LABS: Anion Gap 10 mmol/L (4-12); Blood Urea Nitrogen 21 mg/dL (7-17); Carbon Dioxide 28 mmol/L (22-30); Chloride 102 mmol/L (98-107); Cholesterol 241 mg/dL (0-200); Estimated Glomerular Filt Rate 60; Glucose 81 mg/dL (65-110); HDL Direct 64 mg/dL; Potassium 3.6 mmol/L (3.4-5.0); Sodium 140 mmol/L (137-145); Triglycerides 140 mg/dL (<150)
[2024-08-12 14:31] LABS: LDL Cholesterol Direct 138 mg/dL
== END 2024-08-12 13:00 | disposition home or self-care (01) ==
DX: F32.A Depression, unspecified (principal); I10 Essential (primary) hypertension
CPT/HCPCS: 36415; 80048; 80061; 84443